=== PATIENT | female | born 1985 | race Native Hawaiian/Other Pacific Islander ===

== ENCOUNTER 2016-08-26 12:11 | Emergency (ER) | payer BC, OTHER ==
[~2016-08-26] VITALS: Ht 157.5 cm; Wt 59.0 kg
[2016-08-26] MEDS ORDERED: METOCLOPRAMIDE HCL 10 MG/2 ML VIAL IM ONE (12:45)
[2016-08-26] MEDS ORDERED: METOCLOPRAMIDE HCL 10 MG/2 ML VIAL ONE (13:02)
[2016-08-26] MEDS ORDERED: LIDOCAINE VISCUS 2% 15 ML UDC MM ONE (13:45)
[2016-08-26] MEDS ORDERED: MAG HYDROX/AL HYDROX/SIMETH 30 ML LIQUID UDC PO ONE (13:45)
[2016-08-26] MEDS ORDERED: MAG HYDROX/AL HYDROX/SIMETH 30 ML LIQUID UDC ONE (13:47)
[2016-08-26] MEDS ORDERED: LIDOCAINE VISCUS 2% 15 ML UDC ONE (13:48)
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
[2016-08-26 14:01] VITALS: BP 155/95
== END 2016-08-26 14:01 | disposition home or self-care (01) ==
LOC: ER 12:11
DX: G43.909 Migraine, unspecified, not intractable, without status migrainosus (principal); K21.9 Gastro-esophageal reflux disease without esophagitis; I10 Essential (primary) hypertension
CPT/HCPCS: A4663; J2765